=== PATIENT | female | born 1985 | race American Indian/Alaskan Native ===

== ENCOUNTER 2021-05-11 08:41 | Inpatient (IN) | payer MEDICAID ==
[2021-05-11] MEDS ORDERED: miSOPROStol 200 MCG TAB PR PRN (09:36)
[2021-05-11] MEDS ORDERED: BUTORPHANOL 2 MG/1 ML INJ IV PRN (09:36)
[2021-05-11] MEDS ORDERED: LOPERAMIDE 2 MG CAP PO PRN (09:36)
[2021-05-11] MEDS ORDERED: TERBUTALINE 1 MG/1 ML INJ SUB-Q PRN (09:36)
[2021-05-11] MEDS ORDERED: OXYTOCIN 10 UNIT/1 ML INJ IM PRN (09:36)
[2021-05-11] MEDS ORDERED: fentaNYL 100 MCG/2 ML INJ IV PRN (09:36)
[2021-05-11] MEDS ORDERED: MINERAL OIL 30 ML ORAL LIQD PO PRN (09:36)
[2021-05-11] MEDS ORDERED: METHYLERGONOVINE MALEATE 0.2 MG/ML VIAL IM PRN (09:36)
[2021-05-11] MEDS ORDERED: ACETAMINOPHEN 325 MG TAB PO PRN ×2 (09:36→20:20)
[2021-05-11] MEDS ORDERED: CARBOPROST TROMETHAMINE 250 MCG/1 ML INJ IM PRN (09:36)
[2021-05-11] MEDS ORDERED: ePHEDrine SULFATE 50 MG/1 ML INJ IV PRN ×2 (09:36→12:26)
--- NOTE | 2021-05-11 09:59 | History and Physical Report ---
History of Present Illness Date of examination: 05/11/21 Date of admission: 05/11/2021 Chief complaint: Contractions History of present illness: 35 year old female presents with contractions. Patient denies LOF or VB. Patient received care at [facility]. records are available. LMP 08/14/2020. EDC 05/21/2021. 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 labs are as follows: O+, antibody screen negative, rubella immune, hepatitis B surface antigen negative, HIV negative, RPR nonreactive, varicella nonimmune, HSV 2 positive, gonorrhea negative, chlamydia negative, trichomonas negative, NIPS low risk, 1 hour sugar test 79, GBS positive. Past History Past Medical History: asthma Past Surgical History: no surgical history [facility] History: herpes (patient denies lesions or prodromal symptoms). denies: chlamydia, gonorrhea, hepatitis B, hepatitis C, HIV, syphilis, trichomonas Family/Genetic History: cancer Social history: lives with family, full code. denies: smoking, alcohol abuse, prescription drug abuse, IV drug use - Obstetrical History Expected Date of Delivery: 05/21/21 Actual Gestation: 38 Week(s) 4 Day(s) : 3 Para: 1 Hx # Term Pregnancies: 1 Number of Pregnancies: 0 Spontaneous Abortions: 1 Induced : 0 Number of Living Children: 1 Medications and Allergies Allergies Allergy/AdvReac Type Severity Reaction Status Date / Time No Known Allergies Allergy Unverified 05/11/21 08:51 Home Medications Medication Instructions Recorded Confirmed Last Taken Type Vit-Fe Fumar-FA [ 1 tab PO DAILY 05/11/21 05/11/21 05/07/21 10:00 History Vitamin] Active Meds: Active Medications Acetaminophen (Acetaminophen 325 Mg Tab) 650 mg PO Q4H PRN PRN Reason: Pain, Mild (1-3) Butorphanol Tartrate (Butorphanol 2 Mg/1 Ml Inj) 1 mg IV Q2H PRN PRN Reason: Pain, Moderate(4-6) LABOR PAIN Carboprost Tromethamine (Carboprost Tromethamine 250 Mcg/1 Ml Inj) 250 mcg IM ONCE PRN PRN Reason: Uterine Bleeding Ephedrine Sulfate (Ephedrine Sulfate 50 Mg/1 Ml Inj) 10 mg IV Q2M PRN PRN Reason: Hypotension Fentanyl (Fentanyl 100 Mcg/2 Ml Inj) 100 mcg IV Q2H PRN PRN Reason: Pain,Severe (7-10) LABOR PAIN Oxytocin/Sodium Chloride (Pitocin/Ns 30 Unit/500ml) 30 units in 500 mls @ 2 mls/hr IV TITR LAKEISHA; Protocol Lactated Ringer's (Lactated Ringers) 1,000 mls @ 125 mls/hr IV DIRECT [place]ISHA Oxytocin/Sodium Chloride (Pitocin/Ns 30 Unit/500ml) 30 units in 500 mls @ 40 mls/hr IV TITR LA[place]ISHA; Protocol Ampicillin Sodium (Ampicillin/Ns 2 Gm/100 Ml) 2 gm in 100 mls @ 100 mls/hr IV ONCE ONE; Protocol Stop: 05/11/21 10:59 Ampicillin Sodium (Ampicillin/Ns 1 Gm/50 Ml) 1 gm in 50 mls @ 100 mls/hr IV Q4H LAKEISHA; Protocol Lidocaine (Lidocaine (2%) 20 Mg/1 Ml Vial 20 Ml Mdv) 20 ml INFILTRATI ONCE ONE Stop: 05/11/21 10:01 Loperamide HCl (Loperamide 2 Mg Cap) 2 mg PO ONCE PRN PRN Reason: give with Hemabate Methylergonovine Maleate (Methylergonovine Maleate 0.2 Mg/Ml Vial) 0.2 mg IM ONCE PRN PRN Reason: Uterine Bleeding Mineral Oil (Mineral Oil 30 Ml Oral Liqd) 30 ml PO QHS PRN PRN Reason: Constipation Misoprostol (Misoprostol 200 Mcg Tab) 800 mcg AL ONCE PRN PRN Reason: Uterine Bleeding Oxytocin (Oxytocin 10 Unit/1 Ml Inj) 10 unit IM ONCE PRN PRN Reason: Uterine Bleeding Terbutaline Sulfate (Terbutaline 1 Mg/1 Ml Inj) 0.25 mg SUB-Q ONCE PRN PRN Reason: Hyperstimulation/Hypertonicity Review of Systems All systems: negative (contractions) - Vital Signs Vital signs: Vital Signs Pulse Pulse Ox 79 99 05/11/21 09:02 05/11/21 09:02 Temp Pulse Resp BP Pulse Ox 98.1 F 70 18 121/82 83 L 05/11/21 09:15 05/11/21 09:24 05/11/21 09:15 05/11/21 09:19 05/11/21 09:24 - Physical Exam Abdomen: Positive: normal appearance, soft. Negative: distention, tenderness, guarding, rigidity Genitourinary (Female): Positive: normal external genitalia, normal perenium. Negative: perineal/vulvar lesions (no lesions seen on careful exam under bright light upon admission) Vagina: Positive: normal moisture Uterus: Positive: enlarged. Negative: tender Anus/Rectum: Positive: normal perianal skin Extremities: Positive: normal - Obstetrical FHR: category 1 Uterine Contraction Monitor Mode: External Cervical Dilatation: 4.5 Cervical Effacement Percentage: 100 (BBOW) station: -2 Uterine Contraction Pattern: Regular Uterine Contraction Intensity: Mild Results Result Diagrams: 05/11/21 10:40 All other labs normal. Assessment and Plan A: at 38 weeks, 4 days gestation. Active labor. GBS positive. HSV 2 positive. P: Admit. Continuous EFM. GBS prophylaxis. Valtrex for HSV suppression.
[2021-05-11] MEDS ORDERED: valACYclovir 500 MG TAB PO SCH (10:00)
[2021-05-11] MEDS ORDERED: LIDOCAINE (2%) 20 MG/1 ML VIAL 20 ML MDV INFILTRATI ONE (10:00)
[2021-05-11] MEDS ORDERED: OXYTOCIN DRIP 30 UNITS/500 ML BAG IV SCH (10:00)
[2021-05-11] MEDS ORDERED: AMPICILLIN/NS 2 GM/100 ML 2 GM/100 ML BAG IV ONE (10:00)
[2021-05-11] MEDS: LACTATED RINGERS 1,000 ML IV SCH ×2 (10:50→12:32)
[2021-05-11 11:20] LABS: Hematocrit 33.6 % (30.3-42.9); Hemoglobin 11.4 gm/dl (10.1-14.3); Mean Corpuscular HGB Conc 34 % (30-34); Mean Corpuscular Volume 84 fl (79-97); Platelet Count 244 K/mm3 (140-440); Red Blood Count 3.98 M/mm3 (3.65-5.03); Red Cell Distribution Width 14.4 % (13.2-15.2)
[2021-05-11] MEDS ORDERED: BUPIVACAINE/PF (0.25%) 2.5 MG/ML 10 ML VIAL INFILTRATI ONE (11:59)
[2021-05-11] MEDS ORDERED: fentaNYL-BUPIV 2 MCG/ML-0.125% 200 MCG/100 ML BAG EPIDURAL ONE (12:24)
[2021-05-11] MEDS ORDERED: NALOXONE 2 MG/2 ML INJ IV PRN (12:26)
--- NOTE | 2021-05-11 12:29 | Anesthesia Consultation ---
Anesthesia Consult and Med Hx Date of service: 05/11/21 - Airway Anesthetic Teeth Evaluation: Poor ROM Head & Neck: Adequate Mental/Hyoid Distance: Adequate Mallampati Class: Class II Intubation Access Assessment: Probably Good - Pulmonary Exam CTA: Yes - Cardiac Exam Cardiac Exam: RRR - Pre-Operative Health Status ASA Pre-Surgery Classification: ASA2 Proposed Anesthetic Plan: Epidural - Pulmonary Hx Smoking: No Hx Asthma: Yes (LAST INHALER USE 2 WEEKS) Hx Respiratory Symptoms: No SOB: No COPD: No Home Oxygen Therapy: No Hx Pneumonia: No Hx Sleep Apnea: No - Cardiovascular System Hx Hypertension: No Hx Coronary Artery Disease: No Hx Heart Attack/AMI: No Hx Angina: No Hx Percutaneous Transluminal Coronary Angioplasty (PTCA): No Hx Cardia Arrhythmia: No Hx Pacemaker: No Hx Internal Defibrillator: No Hx Valvular Heart Disease: No Hx Heart Murmur: No Hx Peripheral Vascular Disease: No - Central Nervous System Hx Neuromuscular Disorder: No Hx Seizures: No CVA: No Hx Back Pain: No Hx Psychiatric Problems: No - Gastrointestinal Hx Ulcer: No Hx Gastroesophageal Reflux Disease: Yes - Endocrine Hx Renal Disease: No Hx End Stage Renal Disease: No Hx Cirrhosis: No Hx Liver Disease: No Hx Insulin Dependent Diabetes: No Hx Non-Insulin Dependent Diabetes: No Hx Thyroid Disease: No Hx Hypothyroidism: No Hx Hyperthyroidism: No - Hematic Hx Anemia: No Hx Sickle Cell Disease: No - Other Systems Hx Alcohol Use: Yes (SOCIAL) Hx Substance Use: No Hx Cancer: No Hx Obesity: No
[2021-05-11] MEDS ORDERED: fentaNYL-BUPIV 2 MCG/ML-0.125% 200 MCG/100 ML BAG EPIDURAL SCH (13:00)
--- NOTE | 2021-05-11 13:03 | Progress Note ---
Labor Epidural - Labor Epidural Start Time: 12:04 Stop Time: 12:17 Performed by:: KEYONA BENJAMIN Procedure: Patient is requesting a laboring epidural for laboring pain. Patient IDed, H&P reviewed, all questions and concerns were answered, and consent was signed. Timeout was performed at bedside. Patient in sitting position. Sterile prep and drape was performed. [3] ml of 1% lidocaine skin wheal at L[3]- L [4]. 18- gauge Sergio epidural needle was advanced to loss of resistance with saline technique 6cm. Negative CSF negative blood. Epidural catheter advanced to [10] centimeters. [NEGATIVE] Aspiration [NEGATIVE] test dose. Sterile dressing applied. Patient tolerated procedure.
[2021-05-11] MEDS: OXYTOCIN DRIP 30 UNITS/500 ML BAG IV SCH ×2 (13:08→15:24)
[2021-05-11] MEDS ORDERED: AMPICILLIN/NS 1 GM/50 ML 1 GM/50 ML BAG IV SCH (14:00)
[2021-05-11 14:43] LABS: Alanine Aminotransferase 27 units/L (7-56); Albumin 3.2 g/dL (3.9-5); Blood Urea Nitrogen 8 mg/dL (7-17); Calcium 8.9 mg/dL (8.4-10.2); Hemolysis Index 10; Uric Acid 2.4 mg/dL (3.5-7.6)
[2021-05-11 14:45] LABS: BUN/Creatinine Ratio 16
--- NOTE | 2021-05-11 20:29 | Procedure Note ---
OB Delivery Note - Delivery Date of Delivery: 05/11/21 Surgeon: RESHMA FOLEY Estimated blood loss: 100cc - Vaginal Delivery presentation: vertex Delivery position: OA Intrapartum events: none Delivery induction: none Delivery augmentation: pitocin Delivery monitor: external FHT, external uterine Route of delivery: Delivery placenta: spontaneous Delivery cord: 3 umbilical vessels Episiotomy: none Delivery laceration: none Anesthesia: epidural Delivery comments: Spontaneous vaginal delivery at 20:01 of liveborn male weighing 6 lbs. over intact perineum with apgars of 8/9. was atraumatic; no nuchal cord. Baby placed skin to skin with mom immediately after delivery. Spontaneous cry and respirations. Baby dried with warm towels. 3 vessel cord double clamped and cut and baby taken to radiant warmer for further suctioning. Cord blood obtained. Spontaneous delivery of intact placenta and membranes by soto mechanism. Pitocin to IV fluids after delivery of placenta. Fundus firm and midline. EBL 100 cc. No lacerations noted. Vaginal sweep negative. Sponge count correct. Mother and baby stable.
[2021-05-11] MEDS ORDERED: BENZOCAINE/MENTHOL 20/0.5% TOP SPRAY 56 GM TP PRN (21:00)
[2021-05-11] MEDS ORDERED: HYDROCORTISONE 25 MG RECTAL SUPP PR PRN (21:00)
[2021-05-11] MEDS ORDERED: LANOLIN/ZINC/DIMETHICONE (LANSINOH) 7 GM TP PRN (21:00)
[2021-05-11] MEDS ORDERED: diphenhydrAMINE 25 MG CAP PO PRN (21:00)
[2021-05-11] MEDS ORDERED: WITCH HAZEL/ GLYCERIN PAD TP PRN (21:00)
[2021-05-11] MEDS ORDERED: HYDROcodone/ACETAMINOPHEN 5-325 MG TAB PO PRN (21:00)
[2021-05-11] MEDS ORDERED: MAGNESIUM HYDROXIDE (MOM) ORAL LIQD UDC PO PRN (21:00)
[2021-05-11] MEDS: IBUPROFEN 600 MG TAB PO SCH (21:23)
[2021-05-12] MEDS: DOCUSATE SODIUM 100 MG CAP PO SCH ×3 (00:23→21:54)
[2021-05-12 03:32] LABS: Bacteria,Urine 1+ /HPF (Negative); Bilirubin,Urine NEG (Negative); Blood,Urine LG (Negative); Color,Urine Red (Yellow); Urobilinogen,Urine < 2.0 mg/dL (<2.0)
[2021-05-12 03:38] LABS: RBC,Urine > 182.0 /HPF (0.0-6.0); WBC,Urine > 182.0 /HPF (0.0-6.0)
[2021-05-12] MEDS: IBUPROFEN 600 MG TAB PO SCH ×3 (04:41→22:00)
--- NOTE | 2021-05-12 06:52 | Post Anesthesia Evaluation ---
- Post Anesthesia Evaluation Patient Participated: Yes Airway Patent: Yes Stable Respiratory Function: Yes Nausea/Vomiting: No Temp > 96.8F: Yes Pain Manageable: Yes Adequeate Hydration: Yes Anesthesia Complications: No Block Receding Appropriately: Yes Patient on Ventilator: No
[2021-05-12 09:56] LABS: Hematocrit 29.2 % (30.3-42.9); Hemoglobin 9.9 gm/dl (10.1-14.3)
[2021-05-12] MEDS ORDERED: PRENATAL VIT27-FE FUMARATE-FOLIC ACID VIT TAB PO SCH (10:00)
[2021-05-12] MEDS: PRENATAL VIT27-FE FUMARATE-FOLIC ACID VIT TAB PO SCH (10:18)
[2021-05-12] MEDS: NITROFURANTOIN MONOHYD/M-CRYST 100 MG CAP PO SCH ×2 (10:18→21:54)
--- NOTE | 2021-05-12 11:51 | Progress Note ---
Assessment and Plan A: S/P UTI p: Continue routine pp care Macrobid as prescribed Awaiting h&h D/c home tomm if stable Subjective - Subjective Date of service: 05/12/21 Principal diagnosis: s/p Patient reports: appetite normal, voiding normally, pain well controlled, ambulating normally [place]: doing well, bottle feeding Objective - Vital Signs Latest vital signs: Vital Signs Temp Pulse Resp BP Pulse Ox Pulse Ox 05/12/21 07:58 97.5 F L 69 20 112/59 99 05/12/21 05:41 18 05/12/21 04:41 18 05/12/21 04:20 98.5 F 79 18 120/72 100 05/11/21 23:40 100 05/11/21 23:16 98.1 F 84 18 120/51 99 05/11/21 22:41 85 112/54 05/11/21 22:25 87 130/68 05/11/21 22:23 18 05/11/21 22:12 68 88 05/11/21 22:10 87 112/64 05/11/21 22:07 79 98 05/11/21 22:02 82 98 05/11/21 21:57 76 99 05/11/21 21:55 73 112/62 05/11/21 21:52 85 99 05/11/21 21:47 83 99 05/11/21 21:42 78 99 05/11/21 21:40 75 113/60 05/11/21 21:37 86 97 05/11/21 21:32 79 99 05/11/21 21:27 80 98 05/11/21 21:26 90 110/75 05/11/21 21:22 83 100 05/11/21 21:17 95 H 99 05/11/21 21:14 84 85 05/11/21 21:12 87 99 05/11/21 21:07 82 99 05/11/21 21:02 92 H 100 05/11/21 20:57 90 100 05/11/21 20:55 86 120/67 05/11/21 20:52 93 H 100 05/11/21 20:50 96 H 93 05/11/21 20:47 85 100 05/11/21 20:42 93 H 100 05/11/21 20:41 92 H 126/61 05/11/21 20:37 97 H 99 05/11/21 20:32 100 H 100 05/11/21 20:27 99 H 100 05/11/21 20:22 104 H 99 05/11/21 20:19 99 H 122/60 05/11/21 20:17 101 H 99 05/11/21 20:12 95 H 99 05/11/21 20:07 114 H 99 05/11/21 20:02 107 H 100 05/11/21 19:57 127 H 99 05/11/21 19:52 125 H 100 05/11/21 19:49 88 116/53 05/11/21 19:47 85 100 05/11/21 19:42 101 H 100 05/11/21 19:37 84 100 05/11/21 19:32 90 100 05/11/21 19:27 95 H 100 05/11/21 19:22 89 100 05/11/21 19:17 89 100 05/11/21 19:15 98.9 F 96 05/11/21 19:12 140 H 96 05/11/21 19:07 124 H 98 05/11/21 19:02 83 99 05/11/21 18:57 95 H 99 05/11/21 18:52 116 H 99 05/11/21 18:47 98 H 98 05/11/21 18:42 93 H 98 05/11/21 18:37 105 H 98 05/11/21 18:32 96 H 98 05/11/21 18:27 96 H 98 05/11/21 18:22 85 98 05/11/21 18:19 76 101/61 05/11/21 18:17 79 98 05/11/21 18:12 81 98 05/11/21 18:07 79 98 05/11/21 18:02 86 99 05/11/21 17:57 84 98 05/11/21 17:52 86 98 05/11/21 17:49 76 103/59 05/11/21 17:47 83 98 05/11/21 17:42 83 99 05/11/21 17:37 84 99 05/11/21 17:32 81 99 05/11/21 17:27 92 H 98 05/11/21 17:22 78 99 05/11/21 17:19 80 95/53 05/11/21 17:17 93 H 98 05/11/21 17:12 92 H 100 05/11/21 17:07 107 H 99 05/11/21 17:02 105 H 98 05/11/21 16:57 102 H 99 05/11/21 16:52 92 H 100 05/11/21 16:51 83 109/55 05/11/21 16:47 87 100 05/11/21 16:43 120 H 82 L 05/11/21 16:42 112 H 97 05/11/21 16:37 73 99 05/11/21 16:32 80 99 05/11/21 16:27 78 99 05/11/21 16:22 75 99 05/11/21 16:19 76 91/51 05/11/21 16:17 73 99 05/11/21 16:12 73 99 05/11/21 16:07 84 100 05/11/21 16:02 87 99 05/11/21 15:57 74 99 05/11/21 15:52 80 99 05/11/21 15:47 76 99 05/11/21 15:46 98.4 F 05/11/21 15:42 80 100 05/11/21 15:37 81 99 05/11/21 15:32 90 99 05/11/21 15:27 82 98 05/11/21 15:25 79 92 05/11/21 15:22 74 99 05/11/21 15:21 75 105/59 05/11/21 15:17 79 99 05/11/21 15:12 97 H 98 05/11/21 15:07 71 100 05/11/21 15:06 77 103/68 05/11/21 15:02 77 99 05/11/21 14:57 78 98 05/11/21 14:52 79 118/66 99 05/11/21 14:47 75 99 05/11/21 14:42 83 99 05/11/21 14:37 82 99 05/11/21 14:36 78 102/56 05/11/21 14:32 83 99 05/11/21 14:27 72 99 05/11/21 14:22 76 98 05/11/21 14:21 83 104/60 05/11/21 14:17 73 98 05/11/21 14:12 77 99 05/11/21 14:07 76 99 05/11/21 14:06 73 103/57 05/11/21 14:02 70 98 05/11/21 13:57 80 99 05/11/21 13:52 79 112/61 100 05/11/21 13:47 77 98 05/11/21 13:42 82 99 05/11/21 13:37 73 97 05/11/21 13:36 77 108/57 05/11/21 13:32 71 98 05/11/21 13:27 71 98 05/11/21 13:22 72 99 05/11/21 13:21 68 105/60 05/11/21 13:17 74 99 05/11/21 13:16 98.4 F 05/11/21 13:12 74 100 05/11/21 13:10 86 94 05/11/21 13:07 89 97 05/11/21 13:06 76 109/76 05/11/21 13:02 85 99 05/11/21 12:57 90 99 05/11/21 12:52 85 100 05/11/21 12:51 78 114/66 05/11/21 12:48 74 114/61 05/11/21 12:47 80 99 05/11/21 12:45 90 129/64 05/11/21 12:42 107 H 117/56 98 05/11/21 12:39 82 122/58 05/11/21 12:37 92 H 98 05/11/21 12:36 91 H 131/62 05/11/21 12:33 90 124/59 05/11/21 12:32 87 99 05/11/21 12:29 83 120/58 05/11/21 12:28 84 121/58 05/11/21 12:27 81 121/55 99 05/11/21 12:26 78 112/58 05/11/21 12:25 76 118/56 05/11/21 12:24 83 119/64 05/11/21 12:23 96 H 118/76 05/11/21 12:22 99 H 100 05/11/21 12:21 86 127/64 05/11/21 12:20 83 126/59 05/11/21 12:19 85 135/60 05/11/21 12:18 82 130/63 05/11/21 12:17 92 H 134/57 98 05/11/21 12:16 89 134/66 05/11/21 12:12 92 H 140/72 99 05/11/21 12:09 88 131/71 05/11/21 12:08 91 H 130/62 05/11/21 12:07 89 16 130/62 98 05/11/21 12:06 104 H 152/67 05/11/21 12:04 87 143/70 05/11/21 12:03 83 137/65 05/11/21 12:02 98.4 F 96 H 99 05/11/21 12:01 84 125/78 05/11/21 11:57 94 H 98 05/11/21 11:54 100 H 84 05/11/21 11:52 94 H 100 Intake and Output 05/11/21 05/12/21 05/12/21 22:59 06:59 14:59 Intake Total 12.5 240 240 Output Total 325 700 Balance -312.5 -460 240 Intake: IV 12.5 PITOCin/NS 30 UNIT/500ML 12.5 30 units In 500 ml @ 2 mls/hr IV TITR LAKEISHA Rx#: [id number] Oral 240 240 Output: Urine 325 700 Indwelling Catheter 325 Void 700 Other: Total, Intake Amount 240 240 Total, Output Amount 325 400 # Voids Void 1 - Exam Breasts: Present: normal Abdomen: Present: normal appearance, soft, normal bowel sounds Vulva: both: normal Uterus: Present: normal, firm, fundal height below umbilicus Extremities: Present: normal - Labs Labs: Abnormal lab results 05/11/21 05/12/21 05/12/21 Range/Units 13:33 03:09 08:43 Hgb 9.9 L (10.1-14.3) gm/dl Hct 29.2 L (30.3-42.9) % Sodium 136 L (137-145) mmol/L Carbon Dioxide 18 L (22-30) mmol/L Creatinine 0.5 L (0.6-1.2) mg/dL Uric Acid 2.4 L (3.5-7.6) mg/dL Alkaline Phosphatase 232 H (35-129) units/L Lactate Dehydrogenase 209 H (91-180) units/L Albumin 3.2 L (3.9-5) g/dL Urine WBC (Auto) > 182.0 H (0.0-6.0) /HPF
--- NOTE | 2021-05-12 11:57 | Discharge Summary ---
Providers - Providers Date of Admission: 05/11/21 20:24 Date of discharge: 05/13/21 Attending physician: ERNESTINA ZABALA MD Primary care physician: ERNESTINA ZABALA MD Hospitalization Reason for admission: active labor Delivery: Episiotomy: none Laceration: none Other procedures: none complications: UTI Discharge diagnosis: IUP at term delivered baby: male Hospital course: Pt was admitted in labor and had a w/o complications. Pt dev a uti pp and was treated. See H&p, delivery summary, and pp notes. Condition at discharge: Stable Disposition: DC- TO HOME OR SELFCARE Plan - Discharge Medications Prescriptions: Nitrofurantoin Gu[place]upe/M-Cryst [Macrobid CAP] 100 mg PO Q12HR #12 capsule Ibuprofen [Motrin 600 MG tab] 600 mg PO Q6H #30 tablet - Provider Discharge Summary Activity: routine, no sex for 6 weeks, no heavy lifting 4 weeks, no strenuous exercise Diet: routine Instructions: routine Additional instructions: [] Smoking cessation referral if applicable(refer to patient education folder for contact #) [] Refer to [facility]'s [facility] Booklet Call your doctor immediately for: * Fever > 100.5 * Heavy vaginal bleeding ( >1 pad per hour) * Severe persistent headache * Shortness of breath * Reddened, hot, painful area to leg or breast * Drainage or odor from incision. * Keep incision clean and dry at all times and follow doctor's instructions regarding bathing/showering - Follow up plan Follow up: ERNESTINA ZABALA MD [Primary Care Provider] - 6 Weeks
[2021-05-13] MEDS: IBUPROFEN 600 MG TAB PO SCH ×3 (05:49→21:33)
[2021-05-13] MEDS: DOCUSATE SODIUM 100 MG CAP PO SCH (09:55)
[2021-05-13] MEDS: NITROFURANTOIN MONOHYD/M-CRYST 100 MG CAP PO SCH (09:55)
[2021-05-13] MEDS: PRENATAL VIT27-FE FUMARATE-FOLIC ACID VIT TAB PO SCH (09:55)
[2021-05-13 16:56] VITALS: BP 115/64
== END 2021-05-13 21:45 | disposition home or self-care (01) | DRG 774 ==
LOC: TRG 08:41 → APU 08:42 → LD 10:01 → OBSVTOIN 20:24 → TRG 20:24 → LD 20:24 → OB 23:20
PROVIDERS: ADMIT Obstetrics & Gynecology; ATTEND Obstetrics & Gynecology
PROC: 10E0XZZ Delivery of Products of Conception, External Approach (ICD-10-PCS; principal; 2021-05-11)
PROC: 3E0R3BZ Introduction of Anesthetic Agent into Spinal Canal, Percutaneous Approach (ICD-10-PCS; 2021-05-11)
PROC: 00HU33Z Insertion of Infusion Device into Spinal Canal, Percutaneous Approach (ICD-10-PCS; 2021-05-11)
DX: O99.824 Streptococcus B carrier state complicating childbirth (principal); O98.32 Other infections with a predominantly sexual mode of transmission complicating childbirth; O86.20 Urinary tract infection following delivery, unspecified; O99.52 Diseases of the respiratory system complicating childbirth; O99.284 Endocrine, nutritional and metabolic diseases complicating childbirth; A60.09 Herpesviral infection of other urogenital tract; E55.9 Vitamin D deficiency, unspecified; O99.62 Diseases of the digestive system complicating childbirth; Z37.0 Single live birth; Z3A.38 38 weeks gestation of pregnancy; Z80.9 Family history of malignant neoplasm, unspecified
CPT/HCPCS: 36415; 59025; 80053; 81001; 83615; 84550; 85014; 85018; 85027; 86592; 86850; 86900; 86901; 87086; 99211; G0378; G0463; J0290; J2590; J7120; U0003